=== PATIENT | male | born 1945 | race Caucasian/White ===

== ENCOUNTER 2021-10-20 07:01 | Emergency (ER) | payer MEDICARE ==
[2021-10-20] MEDS ORDERED: Acetaminophen/HYDROcodone 325-5 MG Tab PO ONE (08:16)
[2021-10-20] MEDS ORDERED: Acetaminophen 325 MG Tab PO ONE (08:16)
[2021-10-20] MEDS ORDERED: Ondansetron 4 MG Tab.DIS PO ONE (08:20)
== END 2021-10-20 09:17 | disposition home or self-care (01) ==
LOC: JD.ED 07:01
DX: S42.202A Unspecified fracture of upper end of left humerus, initial encounter for closed fracture (principal); S80.01XA Contusion of right knee, initial encounter; S80.02XA Contusion of left knee, initial encounter; Z86.73 Personal history of transient ischemic attack (TIA), and cerebral infarction without residual deficits
CPT/HCPCS: 36415; 73060; 82550; 85025; 85610; 86140; 99283; A9270